=== PATIENT | female | born 1950 | race Caucasian/White ===

== ENCOUNTER 2017-11-13 10:43 | Outpatient (CLI) | payer MEDICARE ==
--- NOTE | 2017-11-13 13:17 | RAD ---
CHEST TWO VIEWS: HISTORY: Three months of cough. COMPARISON: 01/25/2016 FINDINGS: Normal cardiac silhouette. Pulmonary vessels and hilum are normal. Costophrenic angles are clear. No consolidation or mass. No pneumothorax. Old right rib fracture is redemonstrated. IMPRESSION: No acute cardiopulmonary process. POS: [facility]
== END 2017-11-13 10:44 | disposition home or self-care (01) ==
LOC: MADRAD 10:43
PROVIDERS: ATTEND Family Medicine
DX: R05 Cough (principal)
CPT/HCPCS: 71046

== ENCOUNTER 2019-03-30 10:12 | Emergency (ER) | payer MEDICARE ==
[2019-03-30] MEDS ORDERED: ALPRAZolam 0.5 MG TAB ONE (10:56)
[2019-03-30] MEDS ORDERED: Amoxicillin/Potassium Clav 875 MG TAB ONE (10:57)
[2019-03-30] MEDS ORDERED: Adacel (T-DAP) 0.5 ML SYRINGE ONE ×2 (11:24→11:53)
[2019-03-30] MEDS ORDERED: Rabies Vaccine Human 2.5 UNITS VIAL ONE (11:28)
== END 2019-03-30 12:30 | disposition home or self-care (01) ==
LOC: MADERS 10:12
DX: S40.872A Other superficial bite of left upper arm, initial encounter (principal); S40.871A Other superficial bite of right upper arm, initial encounter; E78.5 Hyperlipidemia, unspecified; E78.00 Pure hypercholesterolemia, unspecified; Z79.899 Other long term (current) drug therapy; Z79.84 Long term (current) use of oral hypoglycemic drugs; W55.01XA Bitten by cat, initial encounter
CPT/HCPCS: 90376; 90471; 90472; 90675; 90715; 96372

== ENCOUNTER 2022-11-27 14:02 | Outpatient (CLI) | payer MEDICARE | END 2022-11-27 14:03 | disposition home or self-care (01) | LOC: MADLAB 14:02 → MADRAD 14:03 | PROVIDERS: ATTEND Nurse Practitioner Family | DX: R06.02 Shortness of breath (principal); R06.2 Wheezing; R05.8 Other specified cough | CPT/HCPCS: 71046 ==

== ENCOUNTER 2023-07-02 13:26 | Emergency (ER) | payer MEDICARE ==
[2023-07-02] MEDS ORDERED: Ipratropium/Albuterol 3 ML NEB ONE (14:10)
[2023-07-02] MEDS ORDERED: Benzonatate 100 MG CAP ONE (14:47)
[2023-07-02 14:59] LABS: SARS-CoV-2 NAA Rapid Test Not Detected (NotDetected)
== END 2023-07-02 15:17 | disposition home or self-care (01) ==
LOC: MADERS 13:26
DX: J20.9 Acute bronchitis, unspecified (principal); Z20.822 Contact with and (suspected) exposure to COVID-19
CPT/HCPCS: 0241U; 71046; 99284; J7620